=== PATIENT | female | born 1995 | race Hispanic/Latino ===

== ENCOUNTER 2024-10-28 04:30 | Emergency (ER) | payer OTHER ==
[2024-10-28 05:24] LABS: Absolute Basophils 0.1 K/uL (0-0.5); Absolute Eosinophils 0.1 K/uL (0-0.5); Absolute Lymphocytes (CBC) 1.8 K/uL (0.7-4.9); Absolute Monocytes 0.4 K/uL (0.1-1.3); Absolute Neutrophil 5.2 K/uL (1.8-8.0); Basophils % 0.8 % (0-1.3); Eosinophils % 1.4 % (0-4.4); Hematocrit 37.4 % (36.0-45.0); Hemoglobin 12.2 g/dL (12.0-15.0); Lymphocytes % 23.4 % (15.3-44.8); MCH 28.1 pg (27.0-35.0); MCHC 32.6 g/dL (32.0-36.0); MCV 86.2 fL (80-100); MPV 9.6 fL (7.6-11.3); Monocytes % 4.9 % (3.3-12.3); Neutrophils % 69.5 % (41.7-73.7); Nucleated Red Blood Cells % 0.3 % (0-0); Platelets 252 thou/uL (152-406); RBC Red Blood Cell Count 4.33 M/uL (3.86-4.86); Red Cell Distribution Width 15.3 % (12.1-15.2)
[2024-10-28 05:54] LABS: Specific Gravity > 1.030 (1.005-1.030); Sqamous Epithelial <5 /HPF (None Seen); Urine Bacteria None Seen /HPF (<20); Urine Bilirubin NEGATIVE (Negative); Urine Blood Negative (Negative); Urine Clarity Clear (Clear); Urine Color Yellow (Yellow); Urine Culture Reflex Order NOT NEEDED; Urine Glucose NEGATIVE (Negative); Urine Ketones 1+ (Negative); Urine Micro Reflex YN NO BILL MICROSCOPIC; Urine Mucus 1+ /HPF (None Seen); Urine Nitrite NEGATIVE (Negative); Urine Protein 1+ (Negative); Urine RBC None Seen /HPF (None Seen); Urine Urobilinogen Normal (Normal); Urine WBC <5 /HPF (<5)
[2024-10-28 06:13] LABS: Albumin 3.9 g/dL (3.4-5.0); Albumin/Globulin Ratio 1.2 (1.1-1.8); Anion Gap 9.5 mEq/L (5.0-15.0); Bilirubin Total 0.7 mg/dL (0.2-1.0); Globulin 3.2 g/dL (2.3-3.5); Potassium 3.5 mEq/L (3.5-5.1); Protein, Total 7.1 g/dL (6.4-8.2)
--- NOTE | 2024-10-28 06:46 | EDPHYS ---
Physician Documentation [facility] Name: Sana Brown Age: 29 yrs Sex: Female : 1995 Arrival Date: 10/28/2024 Time: 04:30 Bed 7 Private MD: ED Physician Brendon Patrick HPI: 10/28 04:41 This 29 yrs old Other Race Female presents to ER via Unassigned with complaints of + sp4 Urine Test, Vaginal Bleeding, Pelvic Pain. 05:21 29-year-old female presents with vaginal bleeding. Last menstrual period sp4 September 22, 2024. . 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 - Infectious Disease History:: Denies. - Social history:: Smoking status: Patient denies any tobacco usage or history of. Patient/guardian denies using alcohol, street drugs. - Family history:: not pertinent. ROS: 05:23 Constitutional: Negative for fever, chills, and weight loss, positive for vaginal sp4 bleeding 05:23 All other systems are negative, Exam: 05:23 Constitutional: This is a well developed, well nourished patient who is awake, alert, sp4 and in no acute distress. Head/Face: Normocephalic, atraumatic. Eyes: Pupils equal round and reactive to light, extra-ocular motions intact. Lids and lashes normal. Conjunctiva and sclera are not injected. Cornea within normal limits. Periorbital areas with no swelling, redness, or edema. ENT: Nares patent. No nasal discharge, no septal abnormalities noted. Tympanic membranes are normal and external auditory canals are clear. Oropharynx with no redness, swelling, or masses, exudates, or evidence of obstruction, uvula midline. Mucous membranes moist. Neck: Trachea midline, no thyromegaly or masses palpated, and no cervical lymphadenopathy. Supple, full range of motion without nuchal rigidity, or vertebral point tenderness. Chest/axilla: Normal chest wall appearance and motion. Nontender with no deformity. No lesions are appreciated. Cardiovascular: Regular rate and rhythm with a normal S1 and S2. No gallops, murmurs, or rubs. Normal PMI, no JVD. No pulse deficits. Respiratory: Lungs have equal breath sounds bilaterally, clear to auscultation and percussion. No rales, rhonchi or wheezes noted. No increased work of breathing, no retractions or nasal flaring. Abdomen/GI: Soft, with normal bowel sounds. No distension or tympany. No guarding or rebound. No evidence of tenderness throughout. Back: No spinal tenderness. No costovertebral tenderness. Skin: Warm, dry with normal turgor. Normal color with no rashes, no lesions, and no evidence of cellulitis. MS/ Extremity: Pulses equal, no cyanosis. Neurovascular intact. Full, normal range of motion. Neuro: Awake and alert, GCS 15, oriented to person, place, time, and situation. Cranial nerves II-XII grossly intact. Motor strength 5/5 in all extremities. Sensory grossly intact. Psych: Awake, alert, with orientation to person, place and time. Behavior, mood, and affect are within normal limits Vital Signs: 04:50 BP 105 / 66; Pulse 75; Resp 18; Temp 98.4; Pulse Ox 99% ; Weight 77.11 kg; Height 5 ft. bm8 0 in. ; Pain 7/10; 06:31 BP 105 / 71; Pulse 84; Resp 17; Temp 98.4; Pulse Ox 100% ; Pain 7/10; bm8 07:37 BP 112 / 82; Pulse 81; Resp 16; Temp 98.1; Pulse Ox 100% on R/A; iw 04:50 Body Mass Index 33.20 (77.11 kg, 152.4 cm) bm8 04:50 Pain Scale: Adult bm8 06:31 Pain Scale: Adult bm8 [place] Coma Score: 04:56 Eye Response: spontaneous(4). Motor Response: obeys commands(6). Verbal Response: bm8 oriented(5). Total: 15. 05:23 Eye Response: spontaneous(4). Motor Response: obeys commands(6). Verbal Response: sp4 oriented(5). Total: 15. 06:31 Eye Response: spontaneous(4). Motor Response: obeys commands(6). Verbal Response: bm8 oriented(5). Total: 15. MDM: 04:45 Medical Screening Exam initiated sp4 06:41 ED course: EXAM: US , Transvaginal CLINICAL HISTORY: The patient is 29 years sp4 old and is Female; LMP 09/22/2024, pos test at home with vaginal bleeding. TECHNIQUE: Real-time transvaginal obstetrical ultrasound of the maternal pelvis and a first trimester with image documentation. Transvaginal imaging was used for better evaluation of the fetus and adnexa. COMPARISON: No relevant prior studies available. FINDINGS: Gestation: No intrauterine gestational sac, yolk sac or pole. Placenta/amniotic fluid: Cannot be adequately evaluated due to the early gestational age. Uterus/cervix: Endometrial stripe 7.6 mm in thickness. No myometrial mass. Ovaries: Left paraovarian echogenic area 2.2 x 2.5 x 2.4 cm, etiology uncertain but not suggestive of ectopic . Right ovary 1.7 x 2.7 x 1.8 cm. Left ovary 2.5 x 2.9 x 2.4 cm. Free fluid: No free fluid. IMPRESSION: 1. No IUP identified. Differential diagnosis includes early gestation, ectopic and, if the patient is bleeding, threatened miscarriage. Serial quantitative hCGs and short-term ultrasound follow-up recommended. 2. Left paraovarian echogenic area motion 2.2 x 2.5 x 2.4 cm, etiology uncertain no possibly dermoid cyst. Findings are not suggestive of ectopic . Electronically signed by: Gladys Augustin MD 10/28/2024 06:37 AM . 10/29 01:03 Differential diagnosis: bin infection, cervicitis, dysfunctional uterine bleeding, sp4 dysmenorrhea. Data reviewed: vital signs, nurses notes, radiologic studies, ultrasound. Consideration of Admission/Observation Escalation of care including admission/observation considered. ED course: Ultrasound suggested no signs of ectopic . Patient stable for discharge home. Advised to repeat ultrasound in 2 weeks. Alternatively hCG level in 2 days.. 10/28 04:42 Order name: HCG-Quantitative; Complete Time: 06:26 sp4 10/28 04:42 Order name: CBC with Diff; Complete Time: 06:26 sp4 10/28 04:42 Order name: CMP; Complete Time: 06:26 sp4 10/28 04:42 Order name: Abo/rh Typing; Complete Time: 06:41 sp4 10/28 04:50 Order name: Urinalysis W/Microscopic; Complete Time: 06:26 sp4 10/28 05:34 Order name: Transvaginal OB EDMS 10/28 04:42 Order name: IV Saline Lock; Complete Time: 05:25 sp4 10/28 04:42 Order name: Labs collected and sent; Complete Time: 05:25 sp4 Administered Medications: No medications were administered Disposition: 01:05 Chart complete. sp4 Disposition Summary: 10/28/24 06:45 Discharge Ordered Problem: new sp4 Symptoms: have improved sp4 Condition: Stable sp4 Diagnosis - Threatened miscarriage, vaginal bleeding in , left ovarian teratoma sp4 - Threatened sp4 Followup: sp4 - With: Private Physician - When: 2 - 3 days - Reason: Recheck today's complaints Discharge Instructions: - Discharge Summary Sheet sp4 - Threatened Miscarriage sp4 - Ovarian Cyst, [id number] sp4 Forms: - Patient Portal Instructions sp4 Signatures: Dispatcher [employer] Brendon Barajas MD MD sp4 Yared Madsen RN RN bm8 Corrections: (The following items were deleted from the chart) 10/28 05:34 04:50 OB [facility].RAD.[email or web address] ordered. EDMS EDMS
--- NOTE | 2024-10-28 06:46 | ER ---
Nurse's Notes [facility] Name: Sana Brown Age: 29 yrs Sex: Female : 1995 Arrival Date: 10/28/2024 Time: 04:30 Bed 7 Private MD: Diagnosis: Threatened miscarriage, vaginal bleeding in , left ovarian teratoma ;Threatened Presentation: 10/28 04:50 Chief complaint: Patient states: heavy vaginal bleeding since mid September post plan B bm8 but has tested positive since. Coronavirus screen: Vaccine status: Patient reports receiving the 2nd dose of the covid vaccine. At this time, the client does not indicate any symptoms associated with coronavirus-19. Ebola Screen: Patient negative for fever greater than or equal to 101.5 degrees Fahrenheit, and additional compatible Ebola Virus Disease symptoms Patient denies exposure to infectious person. Patient denies travel to an Ebola-affected area in the 21 days before illness onset. No symptoms or risks identified at this time. Initial Sepsis Screen: Does the patient meet any 2 criteria? No. Patient's initial sepsis screen is negative. Does the patient have a suspected source of infection? No. Patient's initial sepsis screen is negative. Risk Assessment: Do you want to hurt yourself or someone else? Patient reports no desire to harm self or others. Onset of symptoms is unknown. 04:50 Method Of Arrival: Ambulatory bm8 04:50 Acuity: MARIA FERNANDA 3 bm8 Triage Assessment: 04:53 General: Appears in no apparent distress. uncomfortable, Behavior is calm, cooperative, bm8 appropriate for age. Pain: Complains of pain in pelvis Pain currently is 7 out of 10 on a pain scale. EENT: No deficits noted. No signs and/or symptoms were reported regarding the EENT system. Neuro: No deficits noted. Level of Consciousness is awake, alert, obeys commands, Oriented to person, place, time, situation, Appropriate for age. Cardiovascular: Denies chest pain, Capillary refill < 3 seconds in bilateral fingers Patient's skin is warm and dry. Respiratory: Airway is patent Respiratory effort is even, unlabored, Respiratory pattern is regular, symmetrical, Breath sounds are clear bilaterally. GI: No signs and/or symptoms were reported involving the gastrointestinal system. : Reports vaginal bleeding that is light flow, with + test on 10/25 and 10/28 Patient is sexually active. : Reports a2. Derm: No signs and/or symptoms reported regarding the dermatologic system. Musculoskeletal: No signs and/or symptoms reported regarding the musculoskeletal system. 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 - Infectious Disease History:: Denies. - Social history:: Smoking status: Patient denies any tobacco usage or history of. Patient/guardian denies using alcohol, street drugs. - Family history:: not pertinent. Screenin:56 [facility] ED Fall Risk Assessment (Adult) History of falling in the last 3 months, bm8 including since admission No falls in past 3 months (0 pts) Confusion or Disorientation No (0 pts) Intoxicated or Sedated No (0 pts) Impaired Gait No (0 pts) Mobility Assist Device Used No (0 pt) Altered Elimination No (0 pt) Score/Fall Risk Level 0 - 2 = Low Risk Oriented to surroundings, Maintained a safe environment, Educated pt \T\ family on fall prevention, incl call for assistance when getting out of bed, Provided non-skid footwear, Hourly rounding (assess needs \T\ fall precautionary measures) done, Used ambulatory aids as needed (educated on \T\ assisted with), Used gait belt as appropriate. Abuse screen: Denies threats or abuse. Nutritional screening: No deficits noted. Tuberculosis screening: No symptoms or risk factors identified. Assessment: 04:56 Reassessment: see triage note. bm8 06:31 Reassessment: Patient appears in no apparent distress at this time. No changes from bm8 previously documented assessment. Patient and/or family updated on plan of care and expected duration. Pain level reassessed. Patient is alert, oriented x 3, equal unlabored respirations, skin warm/dry/pink. 07:37 Reassessment: Patient appears in no apparent distress at this time. Patient and/or iw family updated on plan of care and expected duration. Pain level reassessed. Patient is alert, oriented x 3, equal unlabored respirations, skin warm/dry/pink. Vital Signs: 04:50 BP 105 / 66; Pulse 75; Resp 18; Temp 98.4; Pulse Ox 99% ; Weight 77.11 kg; Height 5 ft. bm8 0 in. ; Pain 7/10; 06:31 BP 105 / 71; Pulse 84; Resp 17; Temp 98.4; Pulse Ox 100% ; Pain 7/10; bm8 07:37 BP 112 / 82; Pulse 81; Resp 16; Temp 98.1; Pulse Ox 100% on R/A; iw 04:50 Body Mass Index 33.20 (77.11 kg, 152.4 cm) bm8 04:50 Pain Scale: Adult bm8 06:31 Pain Scale: Adult bm8 [place] Coma Score: 04:56 Eye Response: spontaneous(4). Motor Response: obeys commands(6). Verbal Response: bm8 oriented(5). Total: 15. 05:23 Eye Response: spontaneous(4). Motor Response: obeys commands(6). Verbal Response: sp4 oriented(5). Total: 15. 06:31 Eye Response: spontaneous(4). Motor Response: obeys commands(6). Verbal Response: bm8 oriented(5). Total: 15. ED Course: 04:33 Patient arrived in ED. jj6 04:36 Yared Madsen, RN is Primary Nurse. bm8 04:41 Brendon Patrick MD is Attending Physician. sp4 04:53 Triage completed. bm8 04:53 Arm band placed on right wrist. bm8 04:56 Patient has correct armband on for positive identification. Bed in low position. Call bm8 light in reach. Side rails up X 1. Adult w/ patient. Client placed on continuous cardiac and pulse oximetry monitoring. NIBP monitoring applied. Pulse ox on. NIBP on. Door closed. Noise minimized. Warm blanket given. Pillow given. Verbal reassurance given. Head of bed elevated. 04:56 No provider procedures requiring assistance completed. Initial lab(s) drawn, by , george sent to lab. Urine collected: clean catch specimen, cloudy. Inserted saline lock: 20 gauge in right antecubital area, using aseptic technique. Blood collected. Flushed with 10 mL NS. Patient maintains SpO2 saturation greater than 95% on room air. 05:34 Transvaginal OB In Process Unspecified. EDMS 07:10 Report given to Gen, OTIS. bm8 07:38 IV discontinued, intact, bleeding controlled, No redness/swelling at site. Pressure iw dressing applied. Administered Medications: No medications were administered Medication: 04:56 VIS not applicable for this client. bm8 Outcome: 06:45 Discharge ordered by . sp4 07:38 Discharged to home ambulatory, with family, iw 07:38 Condition: good 07:38 Discharge instructions given to patient, family, Instructed on discharge instructions, follow up and referral plans. Demonstrated understanding of instructions, follow-up care, 07:38 Patient left the ED. iw Signatures: Dispatcher [employer] EDJacey Orellana, RN RN iw Lily Vang6 Brendon Patrick MD MD sp4 Yared Madsen RN RN bm8 Corrections: (The following items were deleted from the chart) 05:34 05:24 In radiology for OB [facility].RAD.BRZ. EDMS EDMS
[2024-10-28 07:53] VITALS: BP 112/82; TEMP 98.1; O2SAT 100
--- NOTE | 2024-10-28 07:57 | RAD REPORT ---
EXAM: US , Transvaginal CLINICAL HISTORY: The patient is 29 years old and is Female; LMP 09/22/2024, pos test at home with vaginal bleeding. TECHNIQUE: Real-time transvaginal obstetrical ultrasound of the maternal pelvis and a first trimest er with image documentation. Transvaginal imaging was used for better evaluation of the fetus and adnexa. COMPARISON: No relevant prior studies available. FINDINGS: Gestation: No intrauterine gestational sac, yolk sac or pole. Placenta/amniotic fluid: Cannot be adequately evaluated due to the early gestational age. Uterus/cervix: Endometrial stripe 7.6 mm in thickness. No myometrial mass. Ovaries: Left paraovarian echogenic area 2.2 x 2.5 x 2.4 cm, etiology uncertain but not suggestiv e of ectopic . Right ovary 1.7 x 2.7 x 1.8 cm. Left ovary 2.5 x 2.9 x 2.4 cm. Free fluid: No free fluid. IMPRESSION: 1. No IUP identified. Differential diagnosis includes early gestation, ectopic and, if th e patient is bleeding, threatened miscarriage. Serial quantitative hCGs and short-term ultrasound follow-up recommended. 2. Left paraovarian echogenic area motion 2.2 x 2.5 x 2.4 cm, etiology uncertain no possibly dermoi d cyst. Findings are not suggestive of ectopic . Electronically signed by: Gladys Augustin MD 10/28/2024 06:37 AM [facility] [place] Due to temporary technical issues with the PACS/Ezetap reporting system, reports are being akosua d by the in-house radiologist without review as a courtesy to ensure prompt reporting the interpreting radiologist is fully responsible for the content of the report. Transcribed Date/Time: 10/28/2024 7:57 AM
== END 2024-10-28 07:38 | disposition home or self-care (01) ==
LOC: ER 04:30
DX: O20.0 Threatened abortion (principal); D27.1 Benign neoplasm of left ovary; Z3A.00 Weeks of gestation of pregnancy not specified
CPT/HCPCS: 36415; 76817; 80053; 81001; 84702; 85025; 86900; 86901; 99284